=== PATIENT | male | born 1975 | race Caucasian/White ===

== ENCOUNTER 2021-01-18 16:14 | Emergency (ER) | payer OTHER ==
[2021-01-18 17:07] LABS: HEMOGLOBIN 16.6 gm/dl (14.0-17.5); RED BLOOD COUNT 5.23 M/UL (4.20-5.50); WHITE BLOOD COUNT 7.6 K/UL (4.5-11.0)
[2021-01-18 17:33] LABS: BUN/CREATININE RATIO 20 (0-10)
[2021-01-18] MEDS ORDERED: FLOMAX 0.4 MG0.4 MG PO (17:39)
[2021-01-18] MEDS ORDERED: HYDROCODON-ACE1 EAC4 PO (17:39)
[2021-01-18] MEDS ORDERED: ZOFRAN ODT 4 MG4 MG SL (17:39)
== END 2021-01-18 18:25 | disposition home or self-care (01) ==
LOC: ER1 16:14
PROVIDERS: Nurse Practitioner
DX: N20.2 Calculus of kidney with calculus of ureter (principal); I10 Essential (primary) hypertension; Z88.2 Allergy status to sulfonamides
CPT/HCPCS: 80053; 81001; 82550; 82553; 83605; 83690; 84484; 85025; 87086; 93005; 96374; 96375; 99284; J1885; J2405

== ENCOUNTER 2021-01-19 00:07 | Emergency (ER) | payer OTHER ==
[~2021-01-19 00:07] MED LIST: FLOMAX 0.4 MG0.4 MG PO; HYDROCODON-ACE1 EAC4 PO; ZOFRAN ODT 4 MG4 MG SL
== END 2021-01-19 03:20 | disposition home or self-care (01) ==
LOC: ER1 00:07
DX: N20.1 Calculus of ureter (principal); I10 Essential (primary) hypertension; Z87.442 Personal history of urinary calculi; Z91.013 Allergy to seafood
CPT/HCPCS: 96372; 99284; J2270; J2550

== ENCOUNTER → 2021-03-18 | Outpatient (CLI) | payer OTHER ==
[~2021-03-18] MED LIST changes: +IBUPROFEN800 MG PO; +ZOFRAN ODT 4 MG4 MG PO
== END ==
LOC: EXRD 03-04 13:00
DX: N44.2 Benign cyst of testis (principal); N43.40 Spermatocele of epididymis, unspecified
CPT/HCPCS: 76870

== ENCOUNTER 2021-03-20 17:05 | Emergency (ER) | payer OTHER ==
[~2021-03-20 17:05] MED LIST changes: -IBUPROFEN800 MG PO; -ZOFRAN ODT 4 MG4 MG PO
[2021-03-20 18:05] LABS: HEMOGLOBIN 17.3 gm/dl (14.0-17.5); RED BLOOD COUNT 5.41 M/UL (4.20-5.50); WHITE BLOOD COUNT 14.3 K/UL (4.5-11.0)
[2021-03-20 18:24] LABS: BUN/CREATININE RATIO 12 (0-10)
[2021-03-20] MEDS ORDERED: ZOFRAN ODT 4 MG4 MG PO ×2 (20:52→20:57)
[2021-03-20] MEDS ORDERED: IBUPROFEN800 MG PO ×2 (20:52→20:57)
[2021-03-20] MEDS ORDERED: FLOMAX 0.4 MG0.4 MG PO ×2 (20:52→20:57)
[2021-03-20] MEDS ORDERED: HYDROCODON-ACE1 EAC4 PO (20:53)
[2021-03-20] MEDS ORDERED: ZOFRAN ODT 4 MG4 MG SL (20:57)
== END 2021-03-20 21:02 | disposition home or self-care (01) ==
LOC: ER1 17:05
PROVIDERS: Physician Assistant
DX: N13.2 Hydronephrosis with renal and ureteral calculous obstruction (principal)
CPT/HCPCS: 80053; 81001; 83690; 85025; 96374; 96375; 99284; J1885; J2270; J2405

== ENCOUNTER 2021-04-16 20:06 | Emergency (ER) | payer OTHER ==
[~2021-04-16 20:06] MED LIST changes: +IBUPROFEN800 MG PO; +ZOFRAN ODT 4 MG4 MG PO
== END 2021-04-16 20:46 | disposition left against medical advice (07) ==
LOC: ER1 20:06
DX: Z53.21 Procedure and treatment not carried out due to patient leaving prior to being seen by health care provider (principal)
CPT/HCPCS: 81001

== ENCOUNTER → 2021-04-18 | Outpatient (CLI) | payer OTHER | LOC: LBRF 16:34 | DX: R30.0 Dysuria (principal); R31.9 Hematuria, unspecified | CPT/HCPCS: 87086 ==